=== PATIENT | female | born 1940 | race African-American/Black ===

== ENCOUNTER 2017-01-21 10:43 | Inpatient (IN) | payer MEDICARE ==
--- NOTE | ~2017-01-21 | CN ---
Consultation Report [facility] [address] [place]. [address] NAME: AINSLEY ROSA : 40 STATUS : ADM IN PAT#: [id number] AGE: 77 ADM/REG DATE : 01/21/17 MR#: [id number] REPORT SERV DATE: 01/24/17 DICTATED BY: DONOVAN SIERRA DATE: 01/23/17 REPORT STATUS : Draft TRANSCRIBED BY: LESLEY DATE: 01/23/17 NEPHROLOGY CONSULT DATE OF CONSULTATION: 01/23/2017 CHIEF COMPLAINT: Acute kidney insufficiency. HISTORY OF PRESENT ILLNESS: The patient is a 77-year-old obese female with significant past medical history of stage II CKD (creatinine 0.9), chronic systolic CHF (ejection fraction 35%), nonischemic cardiomyopathy, restrictive and obstructive lung disease, and diabetes who presented with increasing altered mental status in the setting of hypotension. Initial workup and hospitalization revealed that patient had septic shock associated with urinary tract infections. Urine and blood cultures revealed E. coli. Procalcitonin was 30.5. The patient was initiated on Zosyn. Creatinine at baseline was 0.8 to 0.9. On presentation, her creatinine is 1.59, has increased to 3.14. The patient is noted to be on Levophed which is decreased in strength over the past 24 hours. PAST MEDICAL HISTORY/PAST SURGICAL HISTORY: 1. Stage II CKD, baseline creatinine 0.8 to 0.9. 2. Chronic systolic CHF with ejection fraction of 35%. 3. Hypertension. 4. COPD/KATELYN with restrictive/obstructive lung disease. 5. Diabetes, urinary tract infection, GI bleed, and gross hematuria in spite of Pradaxa. 6. History of DVT. 7. History of connective tissue disorder of unspecific etiology. 8. History of biliary sludge. REVIEW OF SYSTEMS: A complete review of systems negative or otherwise as stated in the HPI. FAMILY MEDICAL HISTORY: Unable to obtain accurate history from the patient. SOCIAL HISTORY: Is followed by [facility]. No tobacco, alcohol, or drugs. ALLERGIES: INCLUDE DILAUDID. MEDICATIONS: Currently on Zosyn. In addition, she is also on Lovenox 30 mg daily, Neurontin 300 mg at bedtime, Plaquenil, aspirin, Protonix, and Levophed. PHYSICAL EXAMINATION: VITAL SIGNS: In's and out's 1757/550. Temperature is 99.9, pulse is 92, and blood pressure is 110/52 on 2 mcg of Levophed. GENERAL: She is morbidly obese and in no apparent distress but looks chronically ill. SKIN: No petechiae or purpura. Consultation Report [facility] [address] [place]. [address] NAME: AINSLEY ROSA : 40 STATUS : ADM IN [facility]#: [id number] AGE: 77 ADM/REG DATE : 01/21/17 MR#: [id number] REPORT SERV DATE: 01/24/17 DICTATED BY: DONOVAN SIERRA DATE: 01/23/17 REPORT STATUS : Draft TRANSCRIBED BY: LESLEY DATE: 01/23/17 HEENT: No scleral icterus. Normocephalic. Dry mucous membranes. NECK: No JVP. Trachea is midline. No lymphadenopathy. CARDIOVASCULAR: Regular rate and rhythm. No gallops, rubs, or murmurs. RESPIRATORY: Clear to auscultation anteriorly with an increased work of breathing. ABDOMEN: Soft, nontender, and nondistended. Positive bowel sounds. EXTREMITIES: No peripheral edema. LABORATORY DATA: Sodium is 141, potassium is 4.5, chloride is 108, CO2 is 26, BUN is 43, creatinine is 3.14, glucose is 132, and CPK total is 268. BNP is 497. Cortisol is 28.9. Calcium is 7.9, phosphorus is 4.4, and magnesium is 2.2. White blood cell count is 5.1, platelets are 72, and hemoglobin is 10.3. Chest x-ray, no acute infiltrates or effusions. Chest x-ray looks similar to her last chest x-ray on 09/02/2016. ASSESSMENT: 1. Septic shock in the setting of urinary tract infection/bacteremia - Escherichia coli. 2. Chronic systolic congestive heart failure with ejection fraction of 35%, nonischemic cardiomyopathy. 3. Nonsustained ventricular tachycardia in the setting of stopping beta-blockers due to hypotension on this admission. 4. Acute kidney insufficiency secondary to acute tubular necrosis associated with #1 and #3. I do not believe the patient has acute interstitial nephritis, glomerulonephritis, or thrombotic microangiopathy. 5. History of connective tissue disease without specific etiology. 6. History of obstructive/restrictive lung disease. 7. History of deep vein thrombosis on Pradaxa, but was discontinued secondary to gastrointestinal bleeding and gross hematuria in 08/2016. 8. Thrombocytopenia. PLAN: 1. Keep Dowd. Albumin 25 g IV q.6 hours x4. Re-evaluate diuretics versus IV fluids in the a.m. The patient may require diuretics if the patient becomes I's greater than O's in the setting of ATN. 2. Renal ultrasound on Wednesday. 3. DNR. CARLOSG/MODL Donovan Sierra M.D. / [id number] CC: Consultation Report [address] [place]. [address] NAME: AINSLEY ROSA : 40 STATUS : ADM IN [facility]#: [id number] AGE: 77 ADM/REG DATE : 01/21/17 MR#: [id number] REPORT SERV DATE: 01/24/17 DICTATED BY: DONOVAN SIERRA. DATE: 01/23/17 REPORT STATUS : Draft TRANSCRIBED BY: MODL DATE: 01/23/17 Carla Dalton M.D.
--- NOTE | ~2017-01-21 | CN ---
Consultation Report [facility] [address] [place]. [address] NAME: AINSLEY ROSA : 40 STATUS : ADM IN PAT#: [id number] AGE: 77 ADM/REG DATE : 01/21/17 MR#: [id number] REPORT SERV DATE: 01/22/17 DICTATED BY: DATE: REPORT STATUS : Draft TRANSCRIBED BY: MODL DATE: 01/22/17 CONSULTATION REPORT DATE OF CONSULTATION: 01/22/2017 CHIEF COMPLAINT/REASON FOR CONSULT: Hypotension and wide-complex tachycardia in a patient with a known history of nonischemic cardiomyopathy. PRIMARY COSTUME CUTTER: Shaheed Rico MD HISTORY OF PRESENT ILLNESS: Ms. Rosa is a very pleasant 77-year-old female who stated that approximately three days prior to admission she began to have dysuria. She thought that she was having another urinary tract infection. She presented to the hospital with a fever of 103, altered mental status changes, and was hypotensive with a lactic acidosis. She has been found to have urosepsis with gram-negative rods and a blood culture with E. coli, 2/2 cultures. The patient is sitting up, eating a full lunch right now. She denies any chest pain or shortness of breath. She states that she has had epigastric discomfort, but is otherwise back to her baseline. PAST MEDICAL HISTORY: 1. Nonischemic cardiomyopathy. 2. Mixed obstructive and restrictive lung disease. 3. Diabetes mellitus type 2. 4. Hypertension. 5. Morbid obesity. 6. Urinary incontinence. 7. Unspecified connective tissue disorder. 8. Obstructive sleep apnea. 9. DNR status. SOCIAL HISTORY: The patient is sedentary, unable to walk. She is not a smoker. There is no history of alcohol use. There is no extracurricular drug use. ALLERGIES: 1. METFORMIN. 2. PHENYTOIN. OUTPATIENT MEDICATIONS: Include: 1. Acetaminophen. 2. Albuterol. 3. Brovana. 4. Liquid Tears. Consultation Report [facility] [address] [place]. [address] NAME: AINSLEY ROSA : 40 STATUS : ADM IN PAT#: [id number] AGE: 77 ADM/REG DATE : 01/21/17 MR#: [id number] REPORT SERV DATE: 01/22/17 DICTATED BY: DATE: REPORT STATUS : Draft TRANSCRIBED BY: LESLEY DATE: 01/22/17 5. Aspirin 81 mg p.o. daily. 6. Pulmicort. 7. Voltaren. 8. Vitamin D. 9. Omeprazole. 10.Lasix 80 mg p.o. daily. 11.Gabapentin 900 mg p.o. q.p.m. 12.Plaquenil. 13.Claritin. 14.Metoprolol succinate 50 mg p.o. q.p.m. 15.Potassium. 16.Pravachol. 17.Januvia. 18.Bactrim. 19.Valsartan. REVIEW OF SYSTEMS: All systems reviewed and is negative except for dictated in HPI. PHYSICAL EXAMINATION: VITAL SIGNS: Temperature, T-max 99.2; pulse 84 to 87; blood pressure has ranged anywhere from 90 to 150 over a systolic. Currently at the bedside, it is 90 mmHg, respirations 21, and oxygen saturations 98% on 3 liters nasal cannula. GENERAL: Mrs. Rosa is an elderly 77-year-old female, who is sitting up on the side of her bed. She is in no distress. NECK: I could not appreciate jugular venous distention, this may be due to her body habitus. There are no bruits auscultated. HEART: Regular rate and rhythm. Soft S1 and S2. I could not appreciate murmurs, rubs, or gallops. LUNGS: Clear to auscultation in all ramsay. ABDOMEN: Markedly obese. Bowel sounds are present. I could not appreciate hepatosplenomegaly due to body habitus. The abdominal aorta is nonpalpable. EXTREMITIES: Warm. There is no pitting edema present. MUSCULOSKELETAL: No clubbing or cyanosis of the digits. DATA: Telemetry documented wide-complex tachycardia, likely nonsustained ventricular tachycardia at 23 beats in duration. An EKG performed on admission documented sinus tachycardia at 105 beats per minute and flattened ST-segment changes. Blood cultures are positive 2/2 for E. coli. Potassium 4, BUN 32, and creatinine 2.29. White blood cell count is 14.8, hemoglobin 10.9, hematocrit 35.8, and platelet count is 113. Cardiac enzymes are negative x2. BNP is 497. TSH is 0.552. Previous cardiac catheterization performed on 09/07/2016 demonstrated no obstructive coronary artery disease. Echocardiogram performed on 09/02/2016 demonstrated an ejection fraction of 35%. IMPRESSION, REPORT, AND PLAN: Consultation Report [facility] [address] [place]. [address] NAME: AINSLEY ROSA : 40 STATUS : ADM IN [facility]#: [id number] AGE: 77 ADM/REG DATE : 01/21/17 MR#: [id number] REPORT SERV DATE: 01/22/17 DICTATED BY: DATE: REPORT STATUS : Draft TRANSCRIBED BY: MODL DATE: 01/22/17 1. Septic shock with hypotension secondary Escherichia coli bacteremia. 2. Urinary tract infection. 3. Multilevel organ involvement with history of acute kidney injury. 4. DO NOT RESUSCITATE status. 5. Nonischemic cardiomyopathy, ejection fraction 35%. 6. Hypertension. 7. Morbid obesity. 8. Nonsustained ventricular tachycardia in the setting of stopping the patient's beta- blockers due to hypotension. RECOMMENDATIONS: 1. We would treat her underlying septic condition with antibiotics that are sensitive to her current infection as previously performed. 2. We would start back her metoprolol succinate and valsartan when blood pressure allows. 3. Would hold the patient's Lasix while the patient is hypotension at this time. 4. The patient is not a candidate for intracardiac defibrillator placement. 5. Overall would recommend a continued supportive care. MANUELA/LESLEY Jeanne Ramirez M.D. / [id number] CC: Maria Teresa Becerra MD
--- NOTE | ~2017-01-21 | DS ---
Discharge Summary [facility] [address] [place]. [address] NAME: AINSLEY ROSA : 40 STATUS : DIS IN PAT#: [id number] AGE: 77 ADM/REG DATE : 01/21/17 MR#: [id number] REPORT SERV DATE: 02/17/17 DICTATED BY: AYLEEN DALTON DATE: 02/16/17 REPORT STATUS : Draft TRANSCRIBED BY: LESLEY DATE: 02/16/17 Data Collection from hospitalization DISCHARGE DIAGNOSES: 1. Urosepsis - E. coli. 2. Acute kidney injury/chronic kidney disease. 3. Hypotension. 4. Congestive heart failure. 5. Diabetes mellitus. 6. Nonambulatory. 7. Recurrent urinary tract infections. 8. Congestive heart failure. 9. Connective tissue disease of unspecified type. 10.Obstructive sleep apnea. 11.Chronic obstructive pulmonary disease. CONSULTATIONS: 1. Devorah Siu M.D. 2. Jeanne Ramirez M.D. 3. Donovan Sierra M.D. 4. Ruslan Mckay M.D. PROCEDURES: Renal ultrasound, 01/25/2017. DISCHARGE MEDICATIONS: Tylenol 500 to 1000 mg every 8 hours as needed, DuoNeb inhaled solution one nebulized inhaler every four hours as needed, Brovana 15 mcg via inhaler twice a day, Artificial Tears one drop daily as needed, vitamin C 500 mg twice a day, aspirin 81 mg daily, Pulmicort 0.5 mg via inhaler twice a day, Voltaren one application topically daily as needed, vitamin D 50,000 units every 30 days as instructed, Nexium 20 mg with supper, Neurontin 300 mg at bedtime, Plaquenil 400 mg daily, Claritin 10 mg at bedtime, Toprol-XL 50 mg with supper, Pravachol 40 mg at bedtime, and Ultram 50 mg one to two tablets every eight hours as needed. She was instructed not to continue Januvia, Bactrim DS, potassium, Diovan, or Lasix. CONDITION ON DISCHARGE: Stable. DISPOSITION: The patient was discharged home on a low-cholesterol 2000-calorie diabetic diet with no concentrated carbohydrates and activities as instructed. She would follow up with [facility], 03/02/2017. [facility], 02/04/[facility]. HOSPITAL COURSE: This is a 77-year-old female who has a history of congestive heart failure, hypertension, diabetes, COPD, and frequent urinary tract infections. She developed dysuria about three days prior to this admission as well as a headache. She was found to have a urinary tract infection on 01/20/2017 and was placed on Bactrim. On the day prior to admission, she developed a fever of 103. She had some mental status changes. She was brought to the emergency room and was found to be quite hypotensive and with elevated lactate consistent with sepsis. She was admitted to the hospital at this time for further evaluation and treatment. Discharge Summary [facility] [id number] [place]. [address] NAME: AINSLEY ROSA : 40 STATUS : DIS IN PAT#: [id number] AGE: 77 ADM/REG DATE : 01/21/17 MR#: [id number] REPORT SERV DATE: 02/17/17 DICTATED BY: AYLEEN DALTON DATE: 02/16/17 REPORT STATUS : Draft TRANSCRIBED BY: LESLEY DATE: 02/16/17 Upon admission, she had elevated liver enzymes, alkaline phosphatase, AST, and ALT. Creatinine level was 1.59. Chest x-ray showed bibasilar atelectasis. Her urine revealed a lot of leukocytes and nitrites positive. Blood culture was growing gram-negative bacilli. She was felt to have urosepsis with hypotension. She was placed in the IMCU. She was started on vancomycin and Rocephin. A PICC line was going to be placed, ProSource in the form of Levophed would be started once that was placed. Lactate and procalcitonin level would be rechecked. The patient has congestive heart failure with reduced ejection fraction with one episode of wide-complex tachycardia early that morning. Lasix and Toprol were continued as tolerated. BNP was going to be checked. Nebulizers with Brovana and Pulmicort were continued. Level 1 sliding scale insulin was started. The patient is a DNR code status with limited interventions. The following day she was seen by Dr. Devorah Siu. She had been started on Randal-Synephrine. She had become hypotensive and had no central access except for peripheral IV. The patient was receiving vancomycin and Rocephin. She does have a previous history of urinary tract infections with E. coli and Klebsiella. She had been asked to see the patient regarding septic shock. Chest x-ray showed mild pulmonary vascular congestion. There were no infiltrates. Some atelectasis was noted. White count was 14.8. The patient had at least a 20-beat run of wide-complex tachycardia overnight. A PICC line was going to be placed, and we would start Levophed as needed. Lasix was ordered. We would hold off on the Lasix for now and have a Dowd catheter placed to see how much urine output the patient had. She was not complaining of abdominal pain. Procalcitonin level was pending. Rocephin was changed to cefepime pending culture results. INR level was normal at 1.5. DVT prophylaxis was going to continue. Toprol and Diovan were held. She had been on Bactrim as an outpatient; this had not been continued. It was uncertain as to when Bactrim had been started. Repeat lab work would be obtained later in the morning. She was also seen by Dr. Jeanne Ramirez regarding hypotension and wide-complex tachycardia in a patient with a known history of nonischemic cardiomyopathy. She was sitting up and eating her lunch. She denied chest pain or shortness of breath. She said that she had epigastric discomfort, but otherwise was back to her baseline. Telemetry had documented wide-complex tachycardia and likely nonsustained ventricular tachycardia at 23 beats of duration. A previous cardiac catheterization in 08/2016 demonstrated no obstructive coronary artery disease. Echocardiogram in 08/2016 demonstrated an ejection fraction of 35%. Her impression included septic shock with hypotension secondary to Escherichia coli and bacteremia. She does have a urinary tract infection. She has multi-level organ involvement with history of acute kidney injury. She does have nonischemic cardiomyopathy with ejection fraction of 35%. It was recommended that we treat her underlying septic condition with antibiotics. She was going to be started back on metoprolol succinate and valsartan when her blood pressure was allowed Lasix would be held while the patient was hypotensive. It was felt that the patient was not a candidate for intracardiac defibrillator placement. Supportive care continued. A PICC line was inserted. On the 01/23/2017, she felt like she had improved that morning. Her shortness of breath was better. She had no specific complaints. Telemetry revealed normal sinus rhythm with frequent PACs. Urine culture had revealed E. coli. We were minimizing excess fluids. She does have evidence of volume overload. The patient has acute renal failure - probably ATN from urosepsis. Urine output appeared to be improving. Creatinine level was 3.14. Her T-max was 99.9. A dose of IV Lasix was given. KCl was stopped. Blood sugar control was stable. She was seen by Dr. Donovan Sierra regarding acute kidney insufficiency. Urine cultures had revealed E. coli. Discharge Summary [facility] [id number] [place]. [address] NAME: AINSLEY ROSA : 40 STATUS : DIS IN PAT#: [id number] AGE: 77 ADM/REG DATE : 01/21/17 MR#: [id number] REPORT SERV DATE: 02/17/17 DICTATED BY: AYLEEN DALTON DATE: 02/16/17 REPORT STATUS : Draft TRANSCRIBED BY: LESLEY DATE: 02/16/17 She was on Levophed. Chest x-ray showed no acute infiltrates or effusions. The Dowd catheter was going to remain in place. IV albumin was being given. We would re-evaluate diuretics versus IV fluids the following morning. A renal ultrasound was requested. On 01/24/2017, the patient was alert. She was conversing appropriately. Creatinine level was increasing with good urine output. Creatinine level was 3.89. She did have trace edema. On 01/25/2017, she did complain of some hip pain. She had no shortness of breath or orthopnea. Renal ultrasound was performed. She was in a normal sinus rhythm. We would minimize excess IV fluids. She did have good urine output. Zosyn was continued. She was off Levophed since earlier that morning. Liver function tests were back to normal. There was no significant arrhythmia. She continued to slowly improve. Carvedilol was restarted. BERNIE inhibitor was held. On 01/26/2017, she did complain of right anterior rib pain with straining; this had been present for two to three months. She did have some gallbladder sludge, but this was not believed to be the cause. She does have deconditioning; we encouraged her to use incentive spirometry. She was evaluated by Physical Therapy. She was seen by Dr. Ruslan Mckay regarding recurrent urinary tract infections and sepsis. Her incontinence seems to be throughout the day and is sometimes precipitated by and urge, and often times it is simply continuous leakage especially at night. Her symptoms mainly include mild discomfort with voiding and suprapubic pain. The recurrent urinary tract infection was not an uncommon setting especially with diabetes and chronic incontinence. That same visit, she had been treated with a number of antibiotics and was now developing more resistant organisms. It was unclear whether the patient empties her bladder incontinently or if she has overflow incontinence. A postvoid residual was going to be checked. Generally, these patient's have depleted vaginal driss and do seem to improve with vaginal estrogen - estradiol. This will help reestablish the pH and the lactobacillus population. In addition to this, he recommended giving vitamin C two to three times per day when her creatinine is normal to keep the urine acidotic. We would attempt in a day or two being without the catheter and check some postvoid residuals to see if her leakage was truly overflow. Unfortunately, a suprapubic tube may or may not be helpful. He preferred to try and treat her without a catheter. She did complain of some left knee pain. She said "its bone against bone." She said this had been triggered with physical therapy two days previously. Routine tramadol was being given. She was encouraged to use incentive spirometry. She continued to make slow improvement. She was placed on defensive monitor. She denied any palpitations, chest pain, shortness of breath, or cardiac complaints. On 01/29/2017, her postvoid residual was 200 mL. Urine cultures revealed E. coli. She was comfortable. She was afebrile. She has no cough. She did have some dyspnea on exertion. Her osteoarthritis, left knee pain had improved. Her respiratory status was felt to be at baseline. She was in a normal sinus rhythm with no events. She did appear grossly euvolemic. She continued to progress. Discharge planning was performed. She had occasional pain in the left knee joint. She still had some soreness in the left flank. Rocephin was continued. Toprol-XL was continued as well. She had been placed on estradiol. On 02/01/2017, she still had occasional left knee pain. She had no new complaints. She had 1+ bilateral edema. Blood pressure was controlled. Lasix had been restarted. Discharge instructions were given. Due to her improved and stable condition, she was discharged home with the above-stated instructions. Discharge Summary [facility] [id number] [place]. [address] NAME: AINSLEY ROSA : 40 STATUS : DIS IN PAT#: [id number] AGE: 77 ADM/REG DATE : 01/21/17 MR#: [id number] REPORT SERV DATE: 02/17/17 DICTATED BY: AYLEEN DALTON DATE: 02/16/17 REPORT STATUS : Draft TRANSCRIBED BY: LESLEY DATE: 02/16/17 Information collected by: Rae Kaba I submit the above information as my discharge summary. TG/LESLEY Ayleen Dalton M.D. / [id number] CC: Maria Teresa Becerra III, M.D. Lisa Gail Carkner, M.D. Stuart G Ginther, M.D.
--- NOTE | ~2017-01-21 | CN ---
Consultation Report [facility] [address] [place]. [address] NAME: AINSLEY ROSA : 40 STATUS : ADM IN [facility]#: [id number] AGE: 77 ADM/REG DATE : 01/21/17 MR#: [id number] REPORT SERV DATE: 01/26/17 DICTATED BY: RUSLAN MCKAY III DATE: 01/26/17 REPORT STATUS : Draft TRANSCRIBED BY: MODL DATE: 01/26/17 CONSULT DATE OF CONSULTATION: 01/26/2017 REASON FOR CONSULT: Recurrent UTIs and sepsis. HISTORY: Ms. Rosa is a 77-year-old black female who is at [facility]. She has long history of medical issues but at this point, is in [facility] for cardiomyopathy, significant obstructive lung disease. She noticed some burning with urination a day prior to admission and subsequently came in apparently fairly confused with a change in mental status and hypotension. Her procalcitonin was . Urine was quite infected and a subsequent cultures grew E. coli. This was blood and urine. She has chronic kidney disease, and her creatinine was 1.59 on presentation which ultimately increased to 3 but now has come to 3.5 but now is starting to come down. The patient was on Levophed, and this has been slowly weaned off. She has a history of urinary tract infections. I do not have outpatient cultures, however, she did have a Klebsiella back earlier in the year and has had some E. coli infections in the hospital, most recent one was in August where she had a similar presentation. She had a CT at that time that showed complex cyst in both kidneys with some calcifications but no obstruction or large stone burden. She voids in a diaper and has been for several years. She is not mobile. Her incontinence seems to be throughout the day and is sometimes precipitated by an urge, often times it is simply continuous leakage especially at night. Her symptoms mainly include mild discomfort with voiding and suprapubic pain. She has had no flank pain with any of the infections. She currently is on Rocephin and afebrile. PAST MEDICAL HISTORY: Includes chronic kidney disease, congestive heart failure with 35% ejection fraction, COPD, and diabetes. She has a history of DVT and is on Pradaxa. SURGERIES: She has had a number of surgeries including total hysterectomy, tubal ligation, cataract surgery, and a right knee replacement. MEDICATIONS: Medications at home included Neurontin for her diabetic neuropathy, Valsartan, Januvia, pravastatin, and inhalers. ALLERGIES: SHE IS ALLERGIC TO DILAUDID AND METFORMIN. FAMILY HISTORY: Positive for diabetes and stones. She does not smoke or drink and is immobile in a [facility] environment. REVIEW OF SYSTEMS: Review of systems includes being wheelchair bound. She has incontinence of urine and sometimes of stool. She denies any chest pain. She is not really active enough to be short of breath. Consultation Report [facility] [address] [place]. [address] NAME: AINSLEY ROSA : 40 STATUS : ADM IN [facility]#: [id number] AGE: 77 ADM/REG DATE : 01/21/17 MR#: [id number] REPORT SERV DATE: 01/26/17 DICTATED BY: RUSLAN MCKAY III DATE: 01/26/17 REPORT STATUS : Draft TRANSCRIBED BY: LESLEY DATE: 01/26/17 PHYSICAL EXAMINATION: GENERAL: When seen in consult, she was alert oriented and had not been febrile in several days. She is alert, quite pleasant morbidly obese. VITAL SIGNS: Blood pressure was stable at 134/63, pulse was 73. I and O was measured at 1200 mL. NECK: Supple. LUNGS: Clear. HEART: She has a regular rate and rhythm. ABDOMEN: Abdomen is protuberant. Bowel sounds are present and active. Liver and spleen are not enlarged. : Dowd catheter is in place draining clear urine. EXTREMITIES: There is mild pedal edema. DATA: Her blood and urine cultures were both positive for E. coli, and she has been changed to Rocephin. LABS: Include a creatinine of 3.38 which is trending down. Electrolytes were otherwise normal. Her white count is 7.8, hemoglobin is 10.4. IMPRESSION: Recurrent urinary tract infections. This is not an uncommon setting especially with diabetes and chronic incontinence. From her history, it seems that she has been treated with a number of antibiotics and is now developing more resistant organisms. It is not clear to me whether does empty her bladder incontinently or if she has overflow incontinence. I could find no mention of how much urine was obtained in the bladder on admission, however, she was dehydrated. We will need to see a postvoid residual. Generally, these patients have depleted vaginal driss and do seem to improve with vaginal estrogens i.e. estradiol. This help re-establish the pH in the lactobacillus population. In addition to this, I would recommend vitamin C two to three times daily when her creatinine is normal to keep the urine acidic. We will try her in a day or so without the catheter and check some postvoid residuals to see if her leakage is truly overflow. Unfortunately, a suprapubic tube may or may not be helpful. I would prefer to try to treat her without a catheter. Thank you for the consult. I will follow her with you. OB/MODL Ruslan Mckay III, M.D. / [id number] Consultation Report [address] [place]. [address] NAME: MOEAINSLEYSP ALCANTARA : 40 STATUS : ADM IN [facility]#: [id number] AGE: 77 ADM/REG DATE : 01/21/17 MR#: [id number] REPORT SERV DATE: 01/26/17 DICTATED BY: RUSLAN MCKAY III DATE: 01/26/17 REPORT STATUS : Draft TRANSCRIBED BY: LESLEY DATE: 01/26/17 CC: Carla Dalton M.D.
--- NOTE | ~2017-01-21 | CN ---
Consultation Report [facility] [address] [place]. [address] NAME: AINSLEY ROSA : 40 STATUS : ADM IN [facility]#: [id number] AGE: 77 ADM/REG DATE : 01/21/17 MR#: [id number] REPORT SERV DATE: 01/22/17 DICTATED BY: ESTEBAN SIU DATE: 01/22/17 REPORT STATUS : Draft TRANSCRIBED BY: MODVictor Hugo DATE: 01/22/17 CONSULTATION DATE OF CONSULTATION: 01/22/2017 HISTORY OF PRESENT ILLNESS: This is a 77-year-old black female patient whom I was asked to see for septic shock on the morning of 01/22. The patient was actually admitted through the emergency room on the at around 10:43. She met criteria for sepsis, was transferred to the [facility]. Blood and urine cultures were sent during the night. During the night, the patient became hypotensive had no central access except for peripheral IV and was started on Randal-Synephrine because of this. We did not get consulted until the following morning for septic shock. The patient was not feeling well the day prior to admission, and on the morning of admission, does not even remember being taken to the emergency room. She denies any chest pain, nausea, vomiting, diarrhea, and there had been no syncopal episodes. In the emergency room, she had a temperature of a 102.8, pulse of 96, respiratory rate of 20, blood pressure 106/41 received 2 L of normal saline. Currently, her blood cultures are positive for gram-negative rods, 2/2. She is on vancomycin and Rocephin. She has known previous history of urinary tract infections with E coli and Klebsiella. We are asked to see her for management of septic shock. ALLERGIES: HER ALLERGIES ARE TO HYDROMORPHONE THAT MAKES HER LETHARGIC AND ACTUALLY IT IS AN ADVERSE REACTION. MEDICATIONS: Her home medications are Tylenol, DuoNebs, Brovana, liquid tears, aspirin, Pulmicort, Voltaren that is applied. There is a gel that is applied to arms and legs as needed. Vitamin D, Nexium, Lasix, Neurontin, Plaquenil, Claritin, Toprol, potassium, Pravachol, Januvia, Bactrim, and Diovan. PAST MEDICAL HISTORY: 1. Significant for nonischemic cardiomyopathy, was seen by Dr. Rico on 09/01/2016, ejection fraction at that time was 35%. 2. Type 2 diabetes mellitus. 3. Hypertension. 4. Morbid obesity. 5. Carries a diagnosis of COPD, but does not have any history of smoking. The patient was seen in consultation by Dr. Black Pulmonary in 08/2016 for asthma and bronchitis. She had an overnight pulse oximetry that did not show any significant desaturation. If there was any concern for obstructive sleep apnea, sleep study was recommended. Do not know if that was ever done. She had a pulmonary function test done in October that showed an FEV1 of 1.7, which is 73% predicted; forced vital capacity was 2.25, which is 75% predicted; FEV1/FVC ratio is 76%; and DLCO is 57%. These findings were more in keeping with restrictive lung disease. 6. Previous urinary tract infections. 7. History of gout and has history of urinary incontinence. Consultation Report [address] [place]. [address] NAME: AINSLEY ROSA : 40 STATUS : ADM IN [facility]#: [id number] AGE: 77 ADM/REG DATE : 01/21/17 MR#: [id number] REPORT SERV DATE: 01/22/17 DICTATED BY: ESTEBAN SIU DATE: 01/22/17 REPORT STATUS : Draft TRANSCRIBED BY: LESLEY DATE: 01/22/17 8. Unspecified connective tissue disorder. 9. Dyslipidemia. 10.Osteoarthritis. 11.Right middle lobe. She had a previous CTA of the chest in 08/2016 that showed no evidence of pulmonary embolus, although she does have a history of lower extremity DVT and bled on Pradaxa. She currently is not on any anticoagulation as far as I can tell. FAMILY HISTORY: Positive for diabetes and rheumatoid arthritis as well as renal stones. SOCIAL HISTORY: The patient is a nonsmoker, uses oxygen at home usually on 2 L on a p.r.n. basis. Lives at home with her son. REVIEW OF SYSTEMS: The patient feels somewhat better today. Not complaining of any nausea, vomiting, has a tendency towards constipation. Denies any chest pain and sometimes complains of what appears to be PND or orthopnea at home. Otherwise a 10-point review of systems is unremarkable. PHYSICAL EXAMINATION: VITAL SIGNS: Pulse is 77 and normal sinus rhythm, respiratory rate is 24, temperature is 98.4. She is on 3 L and saturating 100%. Blood pressure 121/57. GENERAL: The patient is responsive, does not appear to be in any distress. She is lying flat. SKIN: Warm and dry. HEENT: Head is atraumatic and normocephalic. Pupils are equal, round, and reactive to light and accommodation. Extraocular eye movements are intact. Sclerae anicteric. Conjunctivae are pink. Nasal mucosa is within normal limits. Oral mucosa is moist. NECK: Supple without JVD, lymphadenopathy, or thyromegaly. LUNGS: Diminished breath sounds at the bases. No wheezing heard. BREASTS: Symmetrical without masses. ABDOMEN: Obese, nondistended, soft bowel sounds are present, but diminished. No organosplenomegaly is appreciated. There is no pain to palpation of the abdomen. RECTAL/GENITAL: Deferred. EXTREMITIES: Without cyanosis or clubbing, however, the patient does have some peripheral edema. NEUROLOGIC: Cranial nerves 2 through 12 are grossly intact. Motor and sensory are intact. The neurologic exam is nonfocal. LABORATORY DATA: Chest x-ray shows mild pulmonary vascular congestion. No infiltrates. Some atelectasis is noted. Lactic acid now is down to 2.2. BNP is 497. White cell count is 14.8, hemoglobin 10, hematocrit 35, platelet count is 113. Blood cultures are positive as mentioned above. Sodium 142; potassium 4.0; chloride 109; bicarb is 32; creatinine is 2.29, which is elevated from yesterday; glucose is 156; magnesium is 2.02. ALT is 156, AST is 80, alkaline phosphatase is 177, and total bilirubin is 1.9. LFTs were elevated, but trending down. I suspect the patient has some level of shock liver. EKG not done. The Consultation Report [address] [place]. [address] NAME: AINSLEY ROSA : 40 STATUS : ADM IN [facility]#: [id number] AGE: 77 ADM/REG DATE : 01/21/17 MR#: [id number] REPORT SERV DATE: 01/22/17 DICTATED BY: ESTEBAN SIU DATE: 01/22/17 REPORT STATUS : Draft TRANSCRIBED BY: LESLEY DATE: 01/22/17 patient had at least a 20-beat run of wide-complex tachycardia overnight. Cardiology will see the patient as well. ASSESSMENT AND PLAN: A 77-year-old woman with septic shock in the IMCU, some improvement as far as her blood pressure is concerned, but will need a PICC line and to start Levophed if needed. She has been ordered Lasix. We will hold off on the Lasix for now, get a Dowd placed to see how much urine output the patient has. She may need to be seen by Nephrology and may need further evaluation to rule out hydronephrosis or renal stones. She does not have any abdominal pain, so it is probably unlikely. Procalcitonin is pending. I will change her Rocephin to cefepime pending culture results. The patient is in critical condition and is at risk for further renal failure and needs frequent evaluation of blood pressure, pressors, and close followup of lab work. She is at risk for further deterioration cardiac-berry as well. Cardiology has already been consulted. If she has not had cardiac enzymes done, we will send them and obtain a 12-lead EKG. Shock liver. Follow LFTs closely. INR is normal at 1.5. If she is not already on DVT prophylaxis, which she is, we will follow that closely as well. We will hold Toprol and Diovan at this time. Apparently, the patient has been on Bactrim as an outpatient. This has not been continued. It is uncertain as to when this Bactrim was started. It looks like it was started on the . We will repeat lab work later this morning, and if she continues to have issues with her creatinine, we will ask renal to see the patient as well. She is already on sliding insulin scale for her type 2 diabetes mellitus. Critical care time on this patient commenced at 9:10 a.m. and ended at 10:10 a.m., for a total of 60 minutes of critical care time. Thank you for your consultation. We will follow patient with you. /MODL Esteban Siu M.D. / [id number] CC: Carla Dalton M.D.
--- NOTE | ~2017-01-21 | HP ---
History And Physical [facility] [address] [facility] [place]. [address] NAME: AINSLEY ROSA : 40 STATUS : ADM IN [facility]#: [id number] AGE: 77 ADM/REG DATE : 01/21/17 MR#: [id number] REPORT SERV DATE: 01/22/17 DICTATED BY: AYLEEN DALTON DATE: 01/22/17 REPORT STATUS : Draft TRANSCRIBED BY: MODVictor Hugo DATE: 01/22/17 DATE OF ADMISSION: 01/21/2017 HISTORY OF PRESENT ILLNESS: She is a 77-year-old black female with a history of CHF, hypertension, diabetes, COPD, and frequent UTIs. She developed dysuria about three days ago, then a headache, and found to have a UTI in our clinic on 01/20/2017, and then placed on Bactrim. Yesterday, she developed a fever over 103, had mental status changes, and was brought to the emergency room where she was found to be quite hypotensive and with elevated lactate consistent with sepsis, and was admitted for treatment. PAST MEDICAL HISTORY: She was hospitalized in 08/2016 with new a diagnosis of CHF with reduced ejection fraction to 25%. At that point, she also was found to have a GI and a urinary bleed. She was on Pradaxa for DVT and the Pradaxa was stopped. She has a history of hypertension, diabetes, chronic kidney disease, 2 to 3, COPD, connective tissue disease of unspecified type, history of biliary sludge on ultrasound, and obstructive sleep apnea. MEDICATIONS: Her routine medications include gabapentin 900 at bedtime for diabetic neuropathy, hydroxychloroquine 400 a day for the connective tissue disease, valsartan 40 a day, Januvia 100 a day, Toprol-XL 50 a day, Lasix 80 a day, pravastatin 40 a day, Nexium once a day 20 mg, Brovana and Pulmicort nebulizers, aspirin 81 mg a day, DuoNeb every 4 hours as needed, and Klor-Con 10 b.i.d. ALLERGIES: SHE IS ALLERGIC TO HYDROMORPHONE AND METFORMIN. SURGERIES: Include a previous total abdominal hysterectomy, bilateral tubal ligation, cataract surgery, and right knee arthroscopy. FAMILY HISTORY: Positive for rheumatoid arthritis, diabetes, renal stones, and throat cancer. REVIEW OF SYSTEMS: Besides that in the present illness, there has been no nausea, vomiting, or diarrhea. She has not noticed any fever. She has not had chest pain. She does have chronic edema and again with a history of DVT in 05/2016, and a GI bleed following treatment for that. Previous specialists have been Dr. Rico, supervisor money room Dr. Black, portal administrator, Dr. Bustillo, configuration manager, and Dr. Alfredo Hancock, surgeon. PHYSICAL EXAMINATION: VITAL SIGNS: On admission, her temperature is 103.3, but it has returned to normal. Her present blood pressure is 110/51, but this is on Randal-Synephrine pressors, heart rate is 60, O2 saturation is 100% on 3 L, and respiratory rate is 26. GENERAL: She is groggy this morning, but answers questions appropriately. Her skin is adequately hydrated. She has moist mucous membranes. HEART: Has a regular rate and rhythm. No murmur heard. LUNGS: Lung sounds are diminished in the bases. She has a few crackles heard and I hear some mild expiratory wheezes. History And Physical [address] [address] NAME: AINSLEY ROSA : 40 STATUS : ADM IN [facility]#: [id number] AGE: 77 ADM/REG DATE : 01/21/17 MR#: [id number] REPORT SERV DATE: 01/22/17 DICTATED BY: AYLEEN DALTON DATE: 01/22/17 REPORT STATUS : Draft TRANSCRIBED BY: LESLEY DATE: 01/22/17 ABDOMEN: Soft with normal bowel sounds. She had a bowel movement yesterday. EXTREMITIES: Legs: She has 1+ bilateral edema. LABORATORY DATA: Admission labs: Her lactate was 3.7, her white count 8700 with 92% segs, H and H 11.8/37, platelet count 123,000. She had elevated liver enzymes, alkaline phosphatase, AST, and ALT. Her electrolytes: Sodium 143, potassium 3.9, chloride 108, CO2 27, BUN 26, creatinine 1.59, glucose 139, and calcium 8.5. Chest x-ray showed bibasilar atelectasis. Urine showed a lot of leuks and nitrites positive. Blood culture is showing this morning positive blood cultures and gram-negative bacilli. ASSESSMENT AND PLAN: 1. Urosepsis with hypotension. She is presently in the IMCU and I will consult Critical Care to assist in her treatment. She is presently on vancomycin and Rocephin and will be adjusted as needed considering the sensitivities. PICC line is to be placed and continue pressors in the form of Levophed once that gets in. We will do another lactate and procalcitonin as well. 2. Congestive heart failure with reduced ejection fraction with one episode of wide- complex tachycardia, early this morning about 7:30. I will consult Dr. Rico and get his input, and continue her Lasix and her Toprol as tolerated. 3. Chronic obstructive pulmonary disease. Continue her nebs with Brovana and Pulmicort. We will do a BNP this morning. 4. Increased liver function tests. This could be multifactorial with shock liver versus medication side effect which would be the Januvia versus activation of gallbladder disease. Dr. Hancock saw her in the last few months and did not recommend surgery at that time, but we will monitor this. She also has slightly low platelets and albumin and this is evidence also of some liver dysfunction. 5. History of chronic kidney disease, 2 to 3. We will do strict I's and O's and avoid nephrotoxic drugs and any more diuresis than necessary. 6. Diabetes type 2. We will give her the sliding scale level 1 only. 7. Finally, she is a DNR with limited interventions. She does not have dementia and has chosen to proceed with the treatment above. JUDI/LESLEY Ayleen Dalton M.D. / [id number] CC: Ayleen Dalton M.D.
[~2017-01-21 10:43] MED LIST: ACET500CAP PO; ALAVERT10 MG PO; ALBUTEROL5 INH; ASAB PO; BION TEARS OPH; BROVANA15 MCG INH; CALTRA600D PO; CEFT5 PO; CLARIT10 PO; COQ10100 MG PO; DIOV80 PO; DIOVAN HC1 PO; DUONEB INH; FLEXERIL5 MG PO; FOLAMIN PO; FOLTX PO; GLUCOPHXR PO; HALF81 PO; JANUVIA100 MG PO; KLOR-CON 1010 MEQ PO; KLOR-CON M2020 MEQ PO; L40 PO; L80 PO; LEVAQUIN750 MG PO; LIOR10 PO; LOP25 PO; LORT7 PO; MIRALAXPKT PO; MUCINEX1200 MG PO; MUCINEX600 MG PO; NASONEX NAS; NEUR300 PO; NEUR600 PO; NEXIUM20 M1 PO; NORCO1 TA2 PO; OXYCON10 PO; P10 PO; P20 PO; P5 PO; PLAQ200B PO; PRADAXA150 MG PO; PRAVACHOL40 MG PO; PROAIR HFA INH; PULRESP1 INH; SENOKOTS PO; SENTAB PO; TOPXL25 PO; ULTRAM50 PO; VITAMIN D31000 UNIT PO; VITD PO; VOLTAREN1 % TOP
[2017-01-21 11:30] LABS: BASOPHILS 0 %; EOSINOPHILS 0.1 %; EOSINOPHILS ABSOLUTE 0.01 10/3/uL (0.0-0.53); ER CBC TAT 0 Hrs 11 Mins; HEMOGLOBIN 11.8 g/dL (12.0-16.0); IMMATURE GRANULOCYTES 0.1 %; IMMATURE GRANULOCYTES ABSOLUTE 0.01 10/3/uL (0.0-0.11); LYMPHOCYTES 5.6 %; LYMPHOCYTES ABSOLUTE 0.49 10/3/uL (0.67-4.30); MEAN CORPUSCULAR HEMOGLOB 26.6 pg (26.0-34.0); MEAN CORPUSCULAR VOLUME 84.2 fL (80-100); MONOCYTES 1.8 %; MONOCYTES ABSOLUTE 0.16 10/3/uL (0.21-1.20); NEUTROPHILS 92.4 %; NEUTROPHILS ABSOLUTE 8.02 10/3/uL (2.02-8.40); RED CELL COUNT 4.43 10/6/uL (4.0-5.6); WHITE BLOOD CELLS 8.7 10/3/uL (4.5-10.5)
[2017-01-21 11:31] LABS: HEMATOCRIT 37.3 % (36.0-48.0); MANUAL DIFF NO %; MEAN CORPUS HGB CONC 31.6 g/dL (32.0-36.0); PLATELET COUNT 123 10/3/uL (150-400)
[2017-01-21 11:37] LABS: INTERNATIONAL NORMAL RATI 1.4 UNITS (-); PROTIME (NOT ORD) 17.4 SEC (12.0-14.5)
[2017-01-21 11:47] LABS: A/G RATIO 0.9 (0.7-1.9); CALCIUM, SERUM 8.5 MG/DL (8.5-10.4); CHLORIDE, SERUM 108 MMOL/L (96-112); GLOBULIN 3.4 G/DL (2.5-4.1); GLUCOSE, SERUM 137 MG/DL (60-99); POTASSIUM, SERUM 3.9 MMOL/L (3.5-5.3); SGPT(ALT) 238 U/L (5-65); SODIUM, SERUM 143 MMOL/L (135-148); TOTAL PROTEIN 6.4 G/DL (6.0-8.5)
[2017-01-21 11:48] LABS: ALKALINE PHOSPHATASE 194 U/L (45-117); BUN (BLOOD UREA NITROGEN) 26 MG/DL (6-23); CO2 (CARBON DIOXIDE) 27 MMOL/L (24-34); CREATININE 1.59 MG/DL (0.55-1.02); GFR AFRICAN AMERICAN 36 ML/MIN (>=60); GFR NON AFRICAN AMERICAN 31 ML/MIN (>=60); LACTATE 3.7 MMOL/L (0.3-2.4); SGOT(AST) 198 U/L (5-40); TOTAL BILIRUBIN 4.1 MG/DL (0-1.2)
[2017-01-21 12:32] LABS: ASCORBIC ACID (UR NOT ORDER) NEG (NEG); BILIRUBIN, URINE SMALL (NEG); ER URINALYSIS TAT 0 Hrs 20 Mins; KETONE, URINE NEGATIVE (NEG); LEUKOCYTE ESTERASE(NOT OR LARGE (NEG); WBC (NOT ORDERED) (RFLEX) 39 (0-5)
[2017-01-21 12:33] LABS: NITRITE (URINE) POS (NEG)
[2017-01-21] MEDS ORDERED: JANUVIA100 MG PO (12:34)
[2017-01-21] MEDS ORDERED: NEXIUM20 M1 PO (12:34)
[2017-01-21] MEDS ORDERED: PRAVACHOL40 MG PO (12:34)
[2017-01-21] MEDS ORDERED: VITD PO (12:35)
[2017-01-21] MEDS ORDERED: BACDS PO (12:36)
[2017-01-21] MEDS ORDERED: KDUR10 PO (12:36)
[2017-01-21] MEDS ORDERED: LIQUID TEARS OPH (12:36)
[2017-01-21] MEDS ORDERED: ACET500CAP PO (12:37)
[2017-01-21] MEDS ORDERED: NEUR300 PO (12:37)
[2017-01-21] MEDS ORDERED: PLAQ200B PO (12:38)
[2017-01-21] MEDS ORDERED: TOPXL50 PO (12:38)
[2017-01-21] MEDS ORDERED: DIOVAN40 MG PO (12:38)
[2017-01-21] MEDS ORDERED: VOLTAREN1 % TOP (12:39)
[2017-01-21] MEDS ORDERED: PULRESP.5 INH (12:39)
[2017-01-21] MEDS ORDERED: BROVANA15 MCG INH (12:40)
[2017-01-21] MEDS ORDERED: DUONEB INH (12:40)
[2017-01-21] MEDS ORDERED: L80 PO (12:40)
[2017-01-21] MEDS ORDERED: ASAB PO (12:44)
[2017-01-21] MEDS ORDERED: CLARIT10 PO (12:44)
[2017-01-22 09:52] LABS: A/G RATIO 0.7 (0.7-1.9); ALBUMIN 2.6 G/DL (3.5-5.0); CALCIUM, SERUM 7.9 MG/DL (8.5-10.4); CHLORIDE, SERUM 109 MMOL/L (96-112); CO2 (CARBON DIOXIDE) 27 MMOL/L (24-34); GLOBULIN 3.6 G/DL (2.5-4.1); GLUCOSE, SERUM 156 MG/DL (60-99); PHOSPHORUS, SERUM 3.7 MG/DL (2.5-4.5); SGOT(AST) 80 U/L (5-40); SGPT(ALT) 156 U/L (5-65); SODIUM, SERUM 142 MMOL/L (135-148); TOTAL PROTEIN 6.2 G/DL (6.0-8.5)
[2017-01-22 09:53] LABS: ALKALINE PHOSPHATASE 177 U/L (45-117); BASOPHILS 0.1 %; BASOPHILS ABSOLUTE 0.01 10/3/uL (0.0-0.16); BUN (BLOOD UREA NITROGEN) 32 MG/DL (6-23); CREATININE 2.29 MG/DL (0.55-1.02); EOSINOPHILS 0.1 %; EOSINOPHILS ABSOLUTE 0.01 10/3/uL (0.0-0.53); GFR AFRICAN AMERICAN 23 ML/MIN (>=60); GFR NON AFRICAN AMERICAN 20 ML/MIN (>=60); HEMATOCRIT 35.8 % (36.0-48.0); HEMOGLOBIN 10.9 g/dL (12.0-16.0); IMMATURE GRANULOCYTES 0.3 %; IMMATURE GRANULOCYTES ABSOLUTE 0.04 10/3/uL (0.0-0.11); LYMPHOCYTES 10.7 %; LYMPHOCYTES ABSOLUTE 1.59 10/3/uL (0.67-4.30); MEAN CORPUS HGB CONC 30.4 g/dL (32.0-36.0); MEAN CORPUSCULAR HEMOGLOB 26.3 pg (26.0-34.0); MEAN CORPUSCULAR VOLUME 86.3 fL (80-100); MEAN PLATELET VOLUME 10.9 fL (9.2-13.0); MONOCYTES 6.1 %; MONOCYTES ABSOLUTE 0.91 10/3/uL (0.21-1.20); NEUTROPHILS 82.7 %; NEUTROPHILS ABSOLUTE 12.25 10/3/uL (2.02-8.40); PLATELET COUNT 113 10/3/uL (150-400); RBC DISTRIBUTION WIDTH 15.8 % (12.0-16.0); RED CELL COUNT 4.15 10/6/uL (4.0-5.6); TOTAL BILIRUBIN 1.9 MG/DL (0-1.2)
[2017-01-22 09:55] LABS: MANUAL DIFF NO %; WHITE BLOOD CELLS 14.8 10/3/uL (4.5-10.5)
[2017-01-22 11:57] LABS: TROPONIN I <0.02 NG/ML (<0.05); ULTRASENSITIVE TSH 0.671 MCIU/ML (0.358-3.740)
[2017-01-22 11:58] LABS: CK-MB 2.6 NG/ML; CPK 425 U/L (0-200)
[2017-01-22 12:07] LABS: TROPONIN I <0.02 NG/ML (<0.05); ULTRASENSITIVE TSH 0.552 MCIU/ML (0.358-3.740)
[2017-01-22 12:08] LABS: CK-MB 2.8 NG/ML; CPK 490 U/L (0-200)
[2017-01-22 14:29] LABS: BUN (BLOOD UREA NITROGEN) 34 MG/DL (6-23); CALCIUM, SERUM 7.8 MG/DL (8.5-10.4); CHLORIDE, SERUM 110 MMOL/L (96-112); CO2 (CARBON DIOXIDE) 29 MMOL/L (24-34); CREATININE 2.33 MG/DL (0.55-1.02); GFR AFRICAN AMERICAN 23 ML/MIN (>=60); GFR NON AFRICAN AMERICAN 20 ML/MIN (>=60); GLUCOSE, SERUM 137 MG/DL (60-99); POTASSIUM, SERUM 4.2 MMOL/L (3.5-5.3); SODIUM, SERUM 144 MMOL/L (135-148)
[2017-01-22 19:01] LABS: CK-MB 3.2 NG/ML; CPK 435 U/L (0-200); TROPONIN I <0.02 NG/ML (<0.05)
[2017-01-23 05:00] LABS: BASOPHILS 0.2 %; BASOPHILS ABSOLUTE 0.01 10/3/uL (0.0-0.16); EOSINOPHILS 0.6 %; EOSINOPHILS ABSOLUTE 0.03 10/3/uL (0.0-0.53); HEMATOCRIT 35.2 % (36.0-48.0); HEMOGLOBIN 10.6 g/dL (12.0-16.0); IMMATURE GRANULOCYTES 0.6 %; IMMATURE GRANULOCYTES ABSOLUTE 0.03 10/3/uL (0.0-0.11); LYMPHOCYTES ABSOLUTE 0.51 10/3/uL (0.67-4.30); MEAN CORPUS HGB CONC 30.1 g/dL (32.0-36.0); MEAN CORPUSCULAR HEMOGLOB 26.6 pg (26.0-34.0); MEAN CORPUSCULAR VOLUME 88.4 fL (80-100); MEAN PLATELET VOLUME 11.2 fL (9.2-13.0); MONOCYTES 13.1 %; MONOCYTES ABSOLUTE 0.67 10/3/uL (0.21-1.20); NEUTROPHILS 75.5 %; NEUTROPHILS ABSOLUTE 3.87 10/3/uL (2.02-8.40); PLATELET COUNT 92 10/3/uL (150-400); RBC DISTRIBUTION WIDTH 16.1 % (12.0-16.0); RED CELL COUNT 3.98 10/6/uL (4.0-5.6); WHITE BLOOD CELLS 5.1 10/3/uL (4.5-10.5)
[2017-01-23 05:01] LABS: MANUAL DIFF NO %
[2017-01-23 05:07] LABS: A/G RATIO 0.9 (0.7-1.9); ALBUMIN 2.8 G/DL (3.5-5.0); CALCIUM, SERUM 7.9 MG/DL (8.5-10.4); CHLORIDE, SERUM 108 MMOL/L (96-112); CO2 (CARBON DIOXIDE) 26 MMOL/L (24-34); GLOBULIN 3.2 G/DL (2.5-4.1); GLUCOSE, SERUM 132 MG/DL (60-99); PHOSPHORUS, SERUM 4.6 MG/DL (2.5-4.5); POTASSIUM, SERUM 4.5 MMOL/L (3.5-5.3); SGOT(AST) 41 U/L (5-40); SGPT(ALT) 100 U/L (5-65); SODIUM, SERUM 141 MMOL/L (135-148); TROPONIN I <0.02 NG/ML (<0.05)
[2017-01-23 05:08] LABS: ALKALINE PHOSPHATASE 129 U/L (45-117); BUN (BLOOD UREA NITROGEN) 42 MG/DL (6-23); CPK 268 U/L (0-200); CREATININE 3.14 MG/DL (0.55-1.02); DIRECT BILIRUBIN 0.7 MG/DL (0.0-0.4); GFR AFRICAN AMERICAN 16 ML/MIN (>=60); GFR NON AFRICAN AMERICAN 14 ML/MIN (>=60); INDIRECT BILIRUBIN(NOT ORDER) 0.5 MG/DL (0.1-0.9); TOTAL BILIRUBIN 1.2 MG/DL (0-1.2)
[2017-01-23 05:15] LABS: ANISOCYTOSIS 1+ (5-10/OIF) (0-5/OIF); HYPOCHROMIA 1+ (3-10/OIF) (0-2/OIF); PLATELET ESTIMATE DEC (ADEQUATE)
[2017-01-23 05:16] LABS: BASOPHILIC STIPPLING 1+ (2-5/OIF) (0-1/OIF); POIKILOCYTOSIS 1+ (5-10/OIF) (0-5/OIF); POLYCHROMASIA 1+ (2-5/OIF) (0-1/OIF)
[2017-01-23 21:15] LABS: CREATININE, URINE 18.6 MG/DL
[2017-01-24 04:29] LABS: BASOPHILS 0 %; EOSINOPHILS 0.7 %; EOSINOPHILS ABSOLUTE 0.06 10/3/uL (0.0-0.53); HEMATOCRIT 33.7 % (36.0-48.0); HEMOGLOBIN 10.4 g/dL (12.0-16.0); IMMATURE GRANULOCYTES 0.7 %; IMMATURE GRANULOCYTES ABSOLUTE 0.06 10/3/uL (0.0-0.11); LYMPHOCYTES 9.9 %; LYMPHOCYTES ABSOLUTE 0.86 10/3/uL (0.67-4.30); MEAN CORPUS HGB CONC 30.9 g/dL (32.0-36.0); MEAN CORPUSCULAR HEMOGLOB 26.3 pg (26.0-34.0); MEAN PLATELET VOLUME 10.6 fL (9.2-13.0); MONOCYTES 13.9 %; NEUTROPHILS 74.8 %; NEUTROPHILS ABSOLUTE 6.47 10/3/uL (2.02-8.40); PLATELET COUNT 83 10/3/uL (150-400); RBC DISTRIBUTION WIDTH 15.7 % (12.0-16.0); RED CELL COUNT 3.96 10/6/uL (4.0-5.6)
[2017-01-24 04:32] LABS: MANUAL DIFF NO %; MEAN CORPUSCULAR VOLUME 85.1 fL (80-100); WHITE BLOOD CELLS 8.7 10/3/uL (4.5-10.5)
[2017-01-24 04:44] LABS: A/G RATIO 0.9 (0.7-1.9); ALBUMIN 2.9 G/DL (3.5-5.0); CALCIUM, SERUM 8.1 MG/DL (8.5-10.4); CHLORIDE, SERUM 108 MMOL/L (96-112); CO2 (CARBON DIOXIDE) 30 MMOL/L (24-34); GLOBULIN 3.3 G/DL (2.5-4.1); GLUCOSE, SERUM 113 MG/DL (60-99); POTASSIUM, SERUM 4.4 MMOL/L (3.5-5.3); SGOT(AST) 18 U/L (5-40); SGPT(ALT) 64 U/L (5-65); SODIUM, SERUM 144 MMOL/L (135-148); TOTAL BILIRUBIN 1.1 MG/DL (0-1.2); TOTAL PROTEIN 6.2 G/DL (6.0-8.5)
[2017-01-24 04:45] LABS: ALKALINE PHOSPHATASE 110 U/L (45-117); BUN (BLOOD UREA NITROGEN) 54 MG/DL (6-23); CREATININE 3.89 MG/DL (0.55-1.02); GFR AFRICAN AMERICAN 12 ML/MIN (>=60); GFR NON AFRICAN AMERICAN 11 ML/MIN (>=60)
[2017-01-25 04:18] LABS: BASOPHILS 0.1 %; BASOPHILS ABSOLUTE 0.01 10/3/uL (0.0-0.16); EOSINOPHILS 1.3 %; EOSINOPHILS ABSOLUTE 0.11 10/3/uL (0.0-0.53); HEMATOCRIT 30.7 % (36.0-48.0); IMMATURE GRANULOCYTES 0.6 %; IMMATURE GRANULOCYTES ABSOLUTE 0.05 10/3/uL (0.0-0.11); LYMPHOCYTES 12.1 %; LYMPHOCYTES ABSOLUTE 1.03 10/3/uL (0.67-4.30); MEAN CORPUSCULAR HEMOGLOB 26.6 pg (26.0-34.0); MEAN PLATELET VOLUME 11.3 fL (9.2-13.0); MONOCYTES 15.8 %; MONOCYTES ABSOLUTE 1.35 10/3/uL (0.21-1.20); NEUTROPHILS 70.1 %; NEUTROPHILS ABSOLUTE 5.98 10/3/uL (2.02-8.40); PLATELET COUNT 89 10/3/uL (150-400); RBC DISTRIBUTION WIDTH 15.7 % (12.0-16.0); RED CELL COUNT 3.76 10/6/uL (4.0-5.6); WHITE BLOOD CELLS 8.5 10/3/uL (4.5-10.5)
[2017-01-25 04:23] LABS: MANUAL DIFF NO %; MEAN CORPUS HGB CONC 32.6 g/dL (32.0-36.0); MEAN CORPUSCULAR VOLUME 81.6 fL (80-100)
[2017-01-25 04:38] LABS: ALBUMIN 2.9 G/DL (3.5-5.0); BUN (BLOOD UREA NITROGEN) 56 MG/DL (6-23); CALCIUM, SERUM 8.4 MG/DL (8.5-10.4); CHLORIDE, SERUM 108 MMOL/L (96-112); CO2 (CARBON DIOXIDE) 26 MMOL/L (24-34); CREATININE 3.77 MG/DL (0.55-1.02); GFR AFRICAN AMERICAN 13 ML/MIN (>=60); GFR NON AFRICAN AMERICAN 11 ML/MIN (>=60); GLUCOSE, SERUM 92 MG/DL (60-99); POTASSIUM, SERUM 4.4 MMOL/L (3.5-5.3); SODIUM, SERUM 141 MMOL/L (135-148)
[2017-01-25 04:46] LABS: PHOSPHORUS, SERUM 3.6 MG/DL (2.5-4.5)
[2017-01-25 06:25] LABS: PLATELET ESTIMATE DEC (ADEQUATE); POLYCHROMASIA 1+ (2-5/OIF) (0-1/OIF)
[2017-01-26 04:23] LABS: BASOPHILS 0.1 %; BASOPHILS ABSOLUTE 0.01 10/3/uL (0.0-0.16); EOSINOPHILS 2.4 %; EOSINOPHILS ABSOLUTE 0.19 10/3/uL (0.0-0.53); HEMATOCRIT 31.7 % (36.0-48.0); HEMOGLOBIN 10.4 g/dL (12.0-16.0); IMMATURE GRANULOCYTES 1.4 %; IMMATURE GRANULOCYTES ABSOLUTE 0.11 10/3/uL (0.0-0.11); LYMPHOCYTES 18.8 %; LYMPHOCYTES ABSOLUTE 1.47 10/3/uL (0.67-4.30); MEAN CORPUS HGB CONC 32.8 g/dL (32.0-36.0); MEAN CORPUSCULAR HEMOGLOB 26.9 pg (26.0-34.0); MEAN CORPUSCULAR VOLUME 81.9 fL (80-100); MEAN PLATELET VOLUME 10.6 fL (9.2-13.0); MONOCYTES 12.6 %; MONOCYTES ABSOLUTE 0.98 10/3/uL (0.21-1.20); NEUTROPHILS 64.7 %; NEUTROPHILS ABSOLUTE 5.04 10/3/uL (2.02-8.40); PLATELET COUNT 97 10/3/uL (150-400); RBC DISTRIBUTION WIDTH 15.5 % (12.0-16.0); RED CELL COUNT 3.87 10/6/uL (4.0-5.6); WHITE BLOOD CELLS 7.8 10/3/uL (4.5-10.5)
[2017-01-26 04:27] LABS: MANUAL DIFF NO %
[2017-01-26 04:31] LABS: INTERNATIONAL NORMAL RATI 1.2 UNITS (-); PARTIAL THROMBO TIME 37.1 SEC (22.5-37.2); PROTIME (NOT ORD) 14.8 SEC (12.0-14.5)
[2017-01-26 04:46] LABS: A/G RATIO 0.8 (0.7-1.9); ALBUMIN 2.7 G/DL (3.5-5.0); ALKALINE PHOSPHATASE 100 U/L (45-117); BUN (BLOOD UREA NITROGEN) 57 MG/DL (6-23); CALCIUM, SERUM 8.1 MG/DL (8.5-10.4); CHLORIDE, SERUM 110 MMOL/L (96-112); CO2 (CARBON DIOXIDE) 27 MMOL/L (24-34); CREATININE 3.38 MG/DL (0.55-1.02); GFR AFRICAN AMERICAN 14 ML/MIN (>=60); GFR NON AFRICAN AMERICAN 12 ML/MIN (>=60); GLOBULIN 3.2 G/DL (2.5-4.1); GLUCOSE, SERUM 106 MG/DL (60-99); PHOSPHORUS, SERUM 3.4 MG/DL (2.5-4.5); POTASSIUM, SERUM 4.2 MMOL/L (3.5-5.3); SGOT(AST) 19 U/L (5-40); SGPT(ALT) 21 U/L (5-65); SODIUM, SERUM 143 MMOL/L (135-148); TOTAL BILIRUBIN 0.7 MG/DL (0-1.2); TOTAL PROTEIN 5.9 G/DL (6.0-8.5)
[2017-01-27 05:41] LABS: BASOPHILS 0.3 %; BASOPHILS ABSOLUTE 0.03 10/3/uL (0.0-0.16); EOSINOPHILS 3.5 %; EOSINOPHILS ABSOLUTE 0.32 10/3/uL (0.0-0.53); HEMOGLOBIN 10.4 g/dL (12.0-16.0); IMMATURE GRANULOCYTES ABSOLUTE 0.27 10/3/uL (0.0-0.11); LYMPHOCYTES 15.9 %; LYMPHOCYTES ABSOLUTE 1.43 10/3/uL (0.67-4.30); MEAN CORPUS HGB CONC 32.5 g/dL (32.0-36.0); MEAN CORPUSCULAR HEMOGLOB 26.9 pg (26.0-34.0); MEAN CORPUSCULAR VOLUME 82.7 fL (80-100); MEAN PLATELET VOLUME 11.4 fL (9.2-13.0); MONOCYTES 15.5 %; NEUTROPHILS 61.8 %; NEUTROPHILS ABSOLUTE 5.57 10/3/uL (2.02-8.40); RBC DISTRIBUTION WIDTH 15.5 % (12.0-16.0); RED CELL COUNT 3.87 10/6/uL (4.0-5.6)
[2017-01-27 05:42] LABS: MANUAL DIFF NO %; PLATELET COUNT 132 10/3/uL (150-400)
[2017-01-27 05:53] LABS: ALBUMIN 2.7 G/DL (3.5-5.0); BUN (BLOOD UREA NITROGEN) 60 MG/DL (6-23); CALCIUM, SERUM 8.2 MG/DL (8.5-10.4); CHLORIDE, SERUM 111 MMOL/L (96-112); CO2 (CARBON DIOXIDE) 27 MMOL/L (24-34); CREATININE 3.01 MG/DL (0.55-1.02); GFR AFRICAN AMERICAN 17 ML/MIN (>=60); GFR NON AFRICAN AMERICAN 14 ML/MIN (>=60); GLUCOSE, SERUM 107 MG/DL (60-99); PHOSPHORUS, SERUM 4.2 MG/DL (2.5-4.5); POTASSIUM, SERUM 4.4 MMOL/L (3.5-5.3); SODIUM, SERUM 145 MMOL/L (135-148)
[2017-01-28 06:17] LABS: HEMATOCRIT 30.7 % (36.0-48.0); HEMOGLOBIN 9.8 g/dL (12.0-16.0); MEAN CORPUS HGB CONC 31.9 g/dL (32.0-36.0); MEAN CORPUSCULAR HEMOGLOB 27.2 pg (26.0-34.0); MEAN PLATELET VOLUME 11.7 fL (9.2-13.0); RBC DISTRIBUTION WIDTH 15.8 % (12.0-16.0); WHITE BLOOD CELLS 8.1 10/3/uL (4.5-10.5)
[2017-01-28 06:21] LABS: MANUAL DIFF YES %; MEAN CORPUSCULAR VOLUME 85.3 fL (80-100); PLATELET COUNT 172 10/3/uL (150-400)
[2017-01-28 06:22] LABS: BUN (BLOOD UREA NITROGEN) 60 MG/DL (6-23); CALCIUM, SERUM 7.9 MG/DL (8.5-10.4); CHLORIDE, SERUM 113 MMOL/L (96-112); CO2 (CARBON DIOXIDE) 26 MMOL/L (24-34); CREATININE 2.62 MG/DL (0.55-1.02); GFR AFRICAN AMERICAN 20 ML/MIN (>=60); GFR NON AFRICAN AMERICAN 17 ML/MIN (>=60); GLUCOSE, SERUM 118 MG/DL (60-99); POTASSIUM, SERUM 4.8 MMOL/L (3.5-5.3); SODIUM, SERUM 145 MMOL/L (135-148)
[2017-01-28 06:51] LABS: BAND NEUTROPHILS 5 %; EOSINOPHILS 5 %; EOSINOPHILS ABSOLUTE (CALC) 0.41 10/3/uL (0.0-0.53); HYPOCHROMIA 1+ (3-10/OIF) (0-2/OIF); LYMPHOCYTES 23 %; LYMPHOCYTES ABSOLUTE (CALC) 1.86 10/3/uL (0.67-4.30); MONOCYTES 10 %; MONOCYTES ABSOLUTE (CALC) 0.81 10/3/uL (0.21-1.20); NEUTROPHILS ABSOLUTE (CALC) 5.02 10/3/uL (2.02-8.40); PLATELET ESTIMATE ADQ (ADEQUATE); SEGMENTED NEUTROPHIL (0) 57 %; TOTAL NUCLEATED CELLS 100
[2017-01-29 06:24] LABS: BASOPHILS 0.4 %; BASOPHILS ABSOLUTE 0.03 10/3/uL (0.0-0.16); EOSINOPHILS 4.4 %; EOSINOPHILS ABSOLUTE 0.37 10/3/uL (0.0-0.53); HEMATOCRIT 30.2 % (36.0-48.0); HEMOGLOBIN 9.5 g/dL (12.0-16.0); IMMATURE GRANULOCYTES 1.5 %; IMMATURE GRANULOCYTES ABSOLUTE 0.13 10/3/uL (0.0-0.11); LYMPHOCYTES 24.9 %; LYMPHOCYTES ABSOLUTE 2.11 10/3/uL (0.67-4.30); MEAN CORPUS HGB CONC 31.5 g/dL (32.0-36.0); MEAN CORPUSCULAR HEMOGLOB 26.9 pg (26.0-34.0); MEAN CORPUSCULAR VOLUME 85.6 fL (80-100); MEAN PLATELET VOLUME 10.9 fL (9.2-13.0); MONOCYTES 8.5 %; MONOCYTES ABSOLUTE 0.72 10/3/uL (0.21-1.20); NEUTROPHILS 60.3 %; NEUTROPHILS ABSOLUTE 5.13 10/3/uL (2.02-8.40); PLATELET COUNT 218 10/3/uL (150-400); RBC DISTRIBUTION WIDTH 16.2 % (12.0-16.0); RED CELL COUNT 3.53 10/6/uL (4.0-5.6); WHITE BLOOD CELLS 8.5 10/3/uL (4.5-10.5)
[2017-01-29 06:25] LABS: MANUAL DIFF NO %
[2017-01-29 06:33] LABS: CALCIUM, SERUM 8.2 MG/DL (8.5-10.4); CHLORIDE, SERUM 113 MMOL/L (96-112); CO2 (CARBON DIOXIDE) 27 MMOL/L (24-34); GFR AFRICAN AMERICAN 23 ML/MIN (>=60); GFR NON AFRICAN AMERICAN 20 ML/MIN (>=60); POTASSIUM, SERUM 4.7 MMOL/L (3.5-5.3); SODIUM, SERUM 147 MMOL/L (135-148)
[2017-01-29 06:34] LABS: BUN (BLOOD UREA NITROGEN) 54 MG/DL (6-23); GLUCOSE, SERUM 94 MG/DL (60-99)
[2017-01-30 07:01] LABS: HEMATOCRIT 31.3 % (36.0-48.0); HEMOGLOBIN 9.5 g/dL (12.0-16.0); MEAN CORPUS HGB CONC 30.4 g/dL (32.0-36.0); MEAN CORPUSCULAR HEMOGLOB 26.3 pg (26.0-34.0); MEAN CORPUSCULAR VOLUME 86.7 fL (80-100); MEAN PLATELET VOLUME 10.9 fL (9.2-13.0); PLATELET COUNT 260 10/3/uL (150-400); RBC DISTRIBUTION WIDTH 16.3 % (12.0-16.0); RED CELL COUNT 3.61 10/6/uL (4.0-5.6); WHITE BLOOD CELLS 8.8 10/3/uL (4.5-10.5)
[2017-01-30 07:02] LABS: MANUAL DIFF YES %
[2017-01-30 07:24] LABS: ALBUMIN 3.1 G/DL (3.5-5.0); BUN (BLOOD UREA NITROGEN) 48 MG/DL (6-23); CALCIUM, SERUM 8.2 MG/DL (8.5-10.4); CHLORIDE, SERUM 113 MMOL/L (96-112); CO2 (CARBON DIOXIDE) 28 MMOL/L (24-34); GFR AFRICAN AMERICAN 26 ML/MIN (>=60); GFR NON AFRICAN AMERICAN 22 ML/MIN (>=60); GLUCOSE, SERUM 87 MG/DL (60-99); POTASSIUM, SERUM 5.4 MMOL/L (3.5-5.3); SODIUM, SERUM 146 MMOL/L (135-148)
[2017-01-30 07:25] LABS: PHOSPHORUS, SERUM 5.7 MG/DL (2.5-4.5)
[2017-01-30 07:34] LABS: BAND NEUTROPHILS 6 %; EOSINOPHILS 4 %; EOSINOPHILS ABSOLUTE (CALC) 0.35 10/3/uL (0.0-0.53); LYMPHOCYTES 19 %; LYMPHOCYTES ABSOLUTE (CALC) 1.67 10/3/uL (0.67-4.30); MONOCYTES 7 %; MONOCYTES ABSOLUTE (CALC) 0.62 10/3/uL (0.21-1.20); NEUTROPHILS ABSOLUTE (CALC) 6.16 10/3/uL (2.02-8.40); PLATELET ESTIMATE ADQ (ADEQUATE); SEGMENTED NEUTROPHIL (0) 64 %; TOTAL NUCLEATED CELLS 100
[2017-01-30 07:35] LABS: HELMET CELLS OCC (0-2/OIF); POLYCHROMASIA 1+ (2-5/OIF) (0-1/OIF); TEARDROP SHAPED RBCS OCC (0-2/OIF); TOXIC GRANULATION SLT; VACUOLATED NEUTROPHILES OCC
[2017-01-30 07:36] LABS: ELLIPTOCYTES 1+ (3-10/OIF) (0-2/OIF); HYPOCHROMIA 1+ (3-10/OIF) (0-2/OIF)
[2017-01-30 17:09] LABS: PHOSPHORUS, SERUM 4.8 MG/DL (2.5-4.5); POTASSIUM, SERUM 5.3 MMOL/L (3.5-5.3)
[2017-01-31 06:54] LABS: BASOPHILS 0.2 %; BASOPHILS ABSOLUTE 0.02 10/3/uL (0.0-0.16); EOSINOPHILS 3.8 %; EOSINOPHILS ABSOLUTE 0.33 10/3/uL (0.0-0.53); HEMATOCRIT 31.7 % (36.0-48.0); HEMOGLOBIN 9.7 g/dL (12.0-16.0); IMMATURE GRANULOCYTES 0.8 %; IMMATURE GRANULOCYTES ABSOLUTE 0.07 10/3/uL (0.0-0.11); LYMPHOCYTES 18.6 %; LYMPHOCYTES ABSOLUTE 1.63 10/3/uL (0.67-4.30); MANUAL DIFF NO %; MEAN CORPUS HGB CONC 30.6 g/dL (32.0-36.0); MEAN CORPUSCULAR HEMOGLOB 26.9 pg (26.0-34.0); MEAN CORPUSCULAR VOLUME 88.1 fL (80-100); MEAN PLATELET VOLUME 10.7 fL (9.2-13.0); MONOCYTES 6.5 %; MONOCYTES ABSOLUTE 0.57 10/3/uL (0.21-1.20); NEUTROPHILS 70.1 %; NEUTROPHILS ABSOLUTE 6.16 10/3/uL (2.02-8.40); PLATELET COUNT 288 10/3/uL (150-400); RBC DISTRIBUTION WIDTH 15.9 % (12.0-16.0); WHITE BLOOD CELLS 8.8 10/3/uL (4.5-10.5)
[2017-01-31 07:15] LABS: ALBUMIN 3.1 G/DL (3.5-5.0); CALCIUM, SERUM 8.5 MG/DL (8.5-10.4); CHLORIDE, SERUM 113 MMOL/L (96-112); CO2 (CARBON DIOXIDE) 28 MMOL/L (24-34); CREATININE 1.77 MG/DL (0.55-1.02); GFR AFRICAN AMERICAN 32 ML/MIN (>=60); GFR NON AFRICAN AMERICAN 27 ML/MIN (>=60); GLUCOSE, SERUM 93 MG/DL (60-99); PHOSPHORUS, SERUM 5.1 MG/DL (2.5-4.5); POTASSIUM, SERUM 5.4 MMOL/L (3.5-5.3); SODIUM, SERUM 146 MMOL/L (135-148)
[2017-01-31 07:16] LABS: BUN (BLOOD UREA NITROGEN) 42 MG/DL (6-23)
[2017-02-01 05:58] LABS: CALCIUM, SERUM 8.8 MG/DL (8.5-10.4); CHLORIDE, SERUM 112 MMOL/L (96-112); CO2 (CARBON DIOXIDE) 27 MMOL/L (24-34); CREATININE 1.81 MG/DL (0.55-1.02); GFR AFRICAN AMERICAN 31 ML/MIN (>=60); GFR NON AFRICAN AMERICAN 26 ML/MIN (>=60); GLUCOSE, SERUM 85 MG/DL (60-99); POTASSIUM, SERUM 5.4 MMOL/L (3.5-5.3); SODIUM, SERUM 145 MMOL/L (135-148)
[2017-02-01 06:05] LABS: BUN (BLOOD UREA NITROGEN) 38 MG/DL (6-23)
[2017-02-01] MEDS ORDERED: ULTRAM50 PO (10:10)
[2017-02-01] MEDS ORDERED: VITC500 PO (10:11)
== END 2017-02-01 13:30 | disposition home or self-care (01) | DRG 871 ==
LOC: ER 10:43 → IMCU 15:02 → 5SO 01-27 14:00
PROVIDERS: Emergency Medicine; Family Medicine; Internal Medicine Nephrology; Internal Medicine Pulmonary Disease
PROC: 02HV33Z Insertion of Infusion Device into Superior Vena Cava, Percutaneous Approach (ICD-10-PCS; principal; 2017-01-22)
PROC: 4A02X4A Measurement of Cardiac Electrical Activity, Guidance, External Approach (ICD-10-PCS; 2017-01-22)
DX: A41.51 Sepsis due to Escherichia coli [E. coli] (principal); R65.21 Severe sepsis with septic shock; N17.0 Acute kidney failure with tubular necrosis; I47.2 Ventricular tachycardia; I50.23 Acute on chronic systolic (congestive) heart failure; I42.8 Other cardiomyopathies; E11.22 Type 2 diabetes mellitus with diabetic chronic kidney disease; N18.3 Chronic kidney disease, stage 3 (moderate); D69.6 Thrombocytopenia, unspecified; I13.0 Hypertensive heart and chronic kidney disease with heart failure and stage 1 through stage 4 chronic kidney disease, or unspecified chronic kidney disease; N39.0 Urinary tract infection, site not specified; N17.9 Acute kidney failure, unspecified; Z66 Do not resuscitate; E66.01 Morbid (severe) obesity due to excess calories; B96.20 Unspecified Escherichia coli [E. coli] as the cause of diseases classified elsewhere; L94.9 Localized connective tissue disorder, unspecified; Z79.899 Other long term (current) drug therapy; Z79.84 Long term (current) use of oral hypoglycemic drugs; Z88.5 Allergy status to narcotic agent; Z88.8 Allergy status to other drugs, medicaments and biological substances; Z90.710 Acquired absence of both cervix and uterus; Z82.61 Family history of arthritis; Z83.3 Family history of diabetes mellitus; Z80.8 Family history of malignant neoplasm of other organs or systems; Z99.3 Dependence on wheelchair
CPT/HCPCS: 36569; 71010; 76775; 80048; 80053; 80069; 81001; 82248; 82533; 82550; 82553; 82570; 82962; 83605; 83690; 83735; 83880; 84100; 84132; 84145; 84443; 84484; 84540; 85025; 85610; 85730; 87040; 87077; 87086; 87150; 87186; 87641; 93005; 94640; 96374; 97162-GP; 99291; A9270-GY; C1751; J0690; J2370; J2543; J3260; P9047